=== PATIENT | male | born 1985 | race Two or more races ===

== ENCOUNTER 2024-03-21 05:41 | Day surgery (SDC) | payer OTHER ==
[~2024-03-21] VITALS: Ht 167.6 cm; Wt 68.0 kg
[~2024-03-21 05:41] MED LIST: PROZAC10 MG PO; RESTORIL15 MG PO
[2024-03-21] MEDS ORDERED: HEMOSTATIC MATRIX 1 KIT KIT TOP ONE (07:30)
[2024-03-21] MEDS ORDERED: LIDOCAINE HCL 1%/EPINEPHRINE 20ML VIAL IJ ONE (07:30)
[2024-03-21] MEDS ORDERED: BUPIVACAINE HCL/PF 0.25% 50 ML VIAL IJ ONE (07:30)
[2024-03-21] MEDS ORDERED: METRONIDAZOLE/SODIUM CHLORIDE 500 MG/100 ML PIGGYBACK IV ONE (07:30)
[2024-03-21] MEDS ORDERED: CEFTRIAXONE SODIUM 2,000 MG VIAL IV ONE (07:30)
[2024-03-21] MEDS ORDERED: DIBUCAINE 30 GM TUBE RECTAL ONE (07:30)
[2024-03-21] MEDS ORDERED: POVIDONE-IODINE 118 ML BOTT TOP ONE (07:30)
[2024-03-21] MEDS ORDERED: COLACE100 MG PO (08:32)
[2024-03-21] MEDS ORDERED: NEURONTIN300 MG PO (08:32)
[2024-03-21] MEDS ORDERED: TRAM1TAB98 PO (08:32)
== END 2024-03-21 19:30 | disposition home or self-care (01) ==
LOC: CIR.AMB 05:41
PROVIDERS: ATTEND Surgery
DX: K64.1 Second degree hemorrhoids (principal); K64.8 Other hemorrhoids; K64.4 Residual hemorrhoidal skin tags; K62.5 Hemorrhage of anus and rectum; K21.9 Gastro-esophageal reflux disease without esophagitis; F32.A Depression, unspecified; K59.00 Constipation, unspecified

== ENCOUNTER 2024-04-14 11:19 | Emergency (ER) | payer OTHER ==
[~2024-04-14] VITALS: Ht 167.6 cm; Wt 68.0 kg
[~2024-04-14 11:19] MED LIST changes: +COLACE100 MG PO; +NEURONTIN300 MG PO; +TRAM1TAB98 PO
[2024-04-14] MEDS ORDERED: 0.9 % SODIUM CHLORIDE 1,000 ML IV STA (12:11)
[2024-04-14 13:13] LABS: HEMOGLOBIN 14.1 g/dL (13-16.00); MEAN CELL VOLUME 89.5 fL (80.0-100.00); MEAN CORPUSCULAR HEMOGLOBIN 30.8 pg (27.00-32.0); MEAN CORPUSCULAR HGB CONC 34.4 g/dl (32.0-36.0); PLATELET COUNT 326 K/uL (150-450); RED BLOOD COUNT 4.58 M/uL (4.00-6.00); RED CELL DISTRIBUTION WIDTH 12.4 % (11.5-14.5)
[2024-04-14 13:59] LABS: CALCIUM 9.3 mg/dL (8.5-10.1); CREATININE SERUM 0.84 mg/dL (0.70-1.30); GFR 101.2; POTASSIUM 4.8 mEq/L (3.5-5.1)
== END 2024-04-14 17:53 | disposition home or self-care (01) ==
LOC: ER 11:20
PROVIDERS: Emergency Medicine
DX: K62.5 Hemorrhage of anus and rectum (principal); F32.89 Other specified depressive episodes